=== PATIENT | female | born 1960 | race Caucasian/White ===

== ENCOUNTER 2017-12-08 20:50 | Emergency (ER) | payer OTHER ==
[~2017-12-08] VITALS: Ht 170.2 cm; Wt 109.1 kg
[~2017-12-08 20:50] MED LIST: TYLE325T PO
[2017-12-08 20:52] VITALS: BP 150/75; PULSE 100; RESP 16; TEMP 98.2; O2SAT 99
--- NOTE | 2017-12-08 22:49 | RADRPT ---
EXAM DATE/TIME: 12/08/2017 21:36 [place] COMPARISON: CT ABDOMEN & PELVIS W CONTRAST, December 08, 2017, 17:06. INDICATIONS : Right upper quadrant pain. MEDICAL HISTORY : Hypercholesterolemia. Chronic obstructive pulmonary disease. Gastroesophageal reflux disease. Glasses . Bipolar disorder. Depression. Anxiety. SURGICAL HISTORY : Tubal ligation. Hysterectomy. Right shoulder surgery. ENCOUNTER: Initial ACUITY: 2 days PAIN SCORE: 10/10 LOCATION: Right upper quadrant MEASUREMENTS: LIVER: 16.6 cm length COMMON DUCT: 6 mm RIGHT KIDNEY: 10.6 x 4.8 x 4.8 cm FINDINGS: Visualization was suboptimal secondary to overlying bowel gas securing portions of the midline struct ures. LIVER: The liver is at the upper limits of normal in size with diffuse increased density. There is no focal mass or ductal dilatation. There is normal hepatopedal blood flow in the portal vein. COMMON DUCT: No intraluminal mass or stone visualized. GALLBLADDER: Contains no stones, demonstrates no wall thickening or pericholecystic fluid. PANCREAS: The visualized portions are within normal limits. RIGHT KIDNEY: No evidence of hydronephrosis, stone, or mass. CONCLUSION: 1. Unremarkable gallbladder with no evidence of cholelithiasis. 2. Moderate hepatic steatosis. Abdi Theodore MD on December 08, 2017 at 22:46 Board Certified Radiologist. This report was verified electronically.
--- NOTE | 2017-12-09 | PD ---
HPI Chief Complaint: Abdominal Pain Time Seen by Provider: 23:51 Travel History International Travel<30 days: No Contact w/Intl Traveler<30days: No Traveled to known affect area: No History of Present Illness HPI Patient was seen at the time a ER and initially evaluated with CT scan as well as blood work, however per provider patient needed RUQ ultrasound to ensure there was no evidence of any cholecystitis 57-year-old female presents to the emergency room for evaluation of right upper quadrant abdominal pain that started suddenly at 2:00 this morning. Patient states pain woke her from sleep. Pain is localized right upper quadrant and radiates to her back and shoulder. Worse with certain range of motion. She had associated nausea and fever. Subjective temperature of 102 at home . She took Tylenol which relieved her fever but did not help pain. She has vomited 4 times today and had one episode of diarrhea. There is no blood in vomit or stool. She reports history of hypertension, depression, PTSD, and COPD. Hysterectomy PFSH Past Medical History Bipolar Disorder: Yes Anxiety: Yes Depression: Yes High Cholesterol: Yes COPD: Yes Diminished Hearing: No GERD: Yes Respiratory: Yes (COPD) Migraines: Yes Tubal Ligation: Yes Past Surgical History Hysterectomy: Yes Social History Alcohol Use: No Tobacco Use: Yes Substance Use: No Allergies-Medications (Allergen,Severity, Reaction): Coded Allergies: meloxicam (Verified Allergy, Severe, Nausea/Vomiting, 12/08/17) Reported Meds & Prescriptions Reported Meds & Active Scripts Active No Active Prescriptions or Reported Medications Review of Systems General / Constitutional: No: Fever Eyes: No: Visual changes HENT: No: Headaches Cardiovascular: No: Chest Pain or Discomfort Respiratory: No: Shortness of Breath Gastrointestinal: Positive: Nausea, Vomiting, Diarrhea, Abdominal Pain Genitourinary: No: Dysuria Musculoskeletal: No: Pain Skin: No Rash Neurologic: No: Weakness Psychiatric: No: Depression Endocrine: No: Polydipsia Hematologic/Lymphatic: No: Easy Bruising Physical Exam Narrative GENERAL: SKIN: Warm and dry. HEAD: Atraumatic. Normocephalic. EYES: Pupils equal and round. No scleral icterus. No injection or drainage. ENT: No nasal bleeding or discharge. Mucous membranes pink and moist. NECK: Trachea midline. No JVD. CARDIOVASCULAR: Regular rate and rhythm. RESPIRATORY: No accessory muscle use. Clear to auscultation. Breath sounds equal bilaterally. GASTROINTESTINAL: Abdomen soft, non-tender, nondistended. MUSCULOSKELETAL: Extremities without clubbing, cyanosis, or edema. No obvious deformities. NEUROLOGICAL: Awake and alert. No obvious cranial nerve deficits. Motor grossly within normal limits. Five out of 5 muscle strength in the arms and legs. Normal speech. PSYCHIATRIC: Appropriate mood and affect; insight and judgment normal. Data Data Last Documented VS Vital Signs Date Time Temp Pulse Resp B/P (MAP) Pulse Ox O2 Delivery O2 Flow Rate FiO2 12/09/17 00:02 18 12/08/17 20:52 98.2 100 150/75 (100) 99 Orders Orders Us Abdomen Gallbladder (12/08/17 ) Ondansetron Odt (Zofran Odt) (12/09/17 00:15) Levofloxacin (Levaquin) (12/09/17 00:15) Metronidazole (Flagyl) (12/09/17 00:15) Tramadol (Ultram) (12/09/17 00:15) Dicyclomine Inj (Bentyl Inj) (12/09/17 00:15) [facility] Medical Decision Making Medical Screen Exam Complete: Yes Emergency Medical Condition: Yes Medical Record Reviewed: Yes Differential Diagnosis Biliary colic versus cholecystitis versus cholelithiasis versus bacterial gastroenteritis versus pancreatitis Narrative Course Patient's CBC shows leukocytosis of 15,000 however no major shift was noted, no anemia and normal platelet count. Coagulation profile is within normal limits CMP shows normal electrolytes, normal kidney functions, normal liver functions, normal lipase UA does show evidence of UTI Diagnosis Primary Impression: Urinary tract infection Additional Impression: Acute bacterial gastroenteritis Patient Instructions: Gastroenteritis (ED), General Instructions, Urinary Tract Infection in Women (ED) Scripts Metronidazole (Flagyl) 500 Mg Tab 500 MG PO TID for Infection for 7 Days, #21 TAB 0 Refills Prov: Ankush Gonzalez MD 12/09/17 Levofloxacin (Levaquin) 500 Mg Tablet 500 MG PO DAILY for Infection for 7 Days, #7 TAB 0 Refills Prov: Ankush Gonzalez MD 12/09/17 Ondansetron Odt (Zofran Odt) 4 Mg Tab 4 MG SL Q6HR Y for Nausea/Vomiting, #15 TAB 0 Refills Prov: Ankush Gonzalez MD 12/09/17 Tramadol (Ultram) 50 Mg Tab 50 MG PO Q6H Y for PAIN, #15 TAB 0 Refills Prov: Ankush Gonzalez MD 12/09/17 Disposition: 01 DISCHARGE HOME Condition: Stable Ankush Gonzalez MD Dec 09, 2017 00:00
[2017-12-09] MEDS ORDERED: metroNIDAZOLE 500 MG TAB PO ONE (00:15)
[2017-12-09] MEDS ORDERED: DICYCLOMINE HCL 20 MG/2 ML VIAL IM ONE (00:15)
[2017-12-09] MEDS ORDERED: traMADol HCL 50 MG TAB PO ONE (00:15)
[2017-12-09] MEDS ORDERED: LEVOFLOXACIN 500 MG TAB PO ONE (00:15)
[2017-12-09] MEDS ORDERED: ONDANSETRON ODT 4 MG TAB PO ONE (00:15)
[2017-12-09] MEDS ORDERED: METR-1 PO (00:17)
[2017-12-09] MEDS ORDERED: ZOFR4TAB3 SL (00:17)
[2017-12-09] MEDS ORDERED: LEVA500T33 PO (00:17)
[2017-12-09] MEDS ORDERED: TRAM50 PO (00:17)
== END 2017-12-09 00:40 | disposition home or self-care (01) ==
LOC: NEPD 20:50
DX: N39.0 Urinary tract infection, site not specified (principal); A04.9 Bacterial intestinal infection, unspecified; J44.9 Chronic obstructive pulmonary disease, unspecified; F31.9 Bipolar disorder, unspecified; E78.00 Pure hypercholesterolemia, unspecified; B96.20 Unspecified Escherichia coli [E. coli] as the cause of diseases classified elsewhere; F43.10 Post-traumatic stress disorder, unspecified; Z16.11 Resistance to penicillins; Z72.0 Tobacco use
CPT/HCPCS: 74177; 76705; 80053; 81001; 83690; 85007; 85027; 85610; 85730; 87077; 87086; 87186; 96372; 96374; 96375; 99284; J0500; J1885; J2270; J2405; Q9967

== ENCOUNTER 2018-12-01 12:52 | Inpatient (IN) ==
[2018-12-01] MEDS ORDERED: Sodium Chlor 0.9% Inj 500 ML IV.SIG ONE (13:08)
[2018-12-01] MEDS ORDERED: Morphine Inj 4 MG/ML Vial IV.PUSH ONE ×2 (13:08→16:30)
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
[2018-12-01 15:29] LABS: Baso # (Auto) 0.1 th/mm3 (0.0-0.2); Eos # (Auto) 0.2 th/mm3 (0.0-0.4); Eos % (Auto) 1.5 % (0.0-4.0); Hematocrit 45.2 % (35.0-46.0); Hemoglobin 15.6 gm/dL (11.6-15.3); Lymph # (Auto) 3.8 th/mm3 (1.0-4.8); Lymph % (Auto) 29.4 % (9.0-44.0); Mean Corpuscular HGB Conc 34.4 % (32.0-36.0); Mean Corpuscular Hemoglobin 31.9 pg (27.0-34.0); Mean Corpuscular Volume 92.8 fL (80.0-100.0); Mean Platelet Volume 9.2 fL (7.0-11.0); Mono # (Auto) 0.7 th/mm3 (0.0-0.9); Mono % (Auto) 5.5 % (0.0-8.0); Neut % (Auto) 62.6 % (16.0-70.0); Platelet Count 340 th/mm3 (150-450); Red Blood Count 4.87 mil/mm3 (4.00-5.30); Red Cell Distribution Width 13.7 % (11.6-17.2); White Blood Count 12.8 th/mm3 (4.0-11.0)
[2018-12-01 15:40] LABS: Prothrombin Time 10.1 sec (9.8-11.6)
[2018-12-01] MEDS ORDERED: Morphine Sulfate Inj 2 MG/ML Vial IV.PUSH ONE (15:50)
[2018-12-01 15:52] LABS: Alanine Aminotransferase 27 U/L (10-53); Albumin 4.1 g/dL (3.4-5.0); Anion Gap 8 meq/L (5-15); Aspartate Aminotransferase 23 U/L (15-37); Blood Urea Nitrogen 14 mg/dL (7-18); Calcium 9.1 mg/dL (8.5-10.1); Carbon Dioxide 25.5 meq/L (21.0-32.0); Chloride 104 meq/L (98-107); Glomerular Filtration Rate 81 mL/min (>89); Glucose,Random 85 mg/dL (74-106); Potassium 4.2 meq/L (3.5-5.1); Sodium 137 meq/L (136-145)
[2018-12-01 15:54] LABS: Alkaline Phosphatase 152 U/L (45-117); Total Protein 8.1 g/dL (6.4-8.2)
--- NOTE | 2018-12-01 15:55 | XR ---
EXAM DATE: 12/01/2018 3:48 PM EST AGE/SEX: 58 years / Female INDICATIONS: Evaluate for pneumonia, pneumothorax, or communicable diseases. CLINICAL DATA: This is the patient's initial encounter. Patient reports that signs and symptoms have been present for 1 week and indicates a pain score of 0/10. MEDICAL/SURGICAL HISTORY: Chronic obstructive pulmonary disease. None. COMPARISON: [facility], CHEST 1V SINGLE AP, 10/13/2018. . FINDINGS: A single AP view of the chest demonstrates the lungs to be symmetrically aerated without evidence of mass, infiltrate or effusion. The cardiomediastinal contours are unremarkable. Osseous structures a re intact. CONCLUSION: No acute cardiopulmonary findings. Stable compared to previous dated 10/13/2018. Electronically signed by: Henri Mathew MD Board Certified Radiologist 12/01/2018 3:53 PM EST
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
[2018-12-01] MEDS ORDERED: Acetaminophen 325 MG Tablet PO PRN (16:11)
[2018-12-01] MEDS ORDERED: Naloxone Inj 0.4 MG/ML Vial IV.PUSH PRN (16:11)
[2018-12-01] MEDS: Morphine Inj 4 MG/ML Vial IV.PUSH PRN ×2 (19:18→21:08)
[2018-12-01] MEDS: Zolpidem Tartrate 5 MG Tablet PO PRN (21:09)
[2018-12-01] MEDS: Morphine Sulfate Inj 2 MG/ML Vial IV.PUSH PRN (22:49)
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
[2018-12-02] MEDS: Morphine Inj 4 MG/ML Vial IV.PUSH PRN ×2 (01:11→07:33)
[2018-12-02] MEDS ORDERED: Chlorhexidine Gluconate 2% 1 Pack (2 Cloths) TOPICAL ONE (03:44)
[2018-12-02] MEDS: Morphine Sulfate Inj 2 MG/ML Vial IV.PUSH PRN (03:56)
[2018-12-02] MEDS ORDERED: Sodium Chlor 0.9% Inj 500 ML IV.SIG SCH (04:00)
[2018-12-02 04:57] LABS: Baso # (Auto) 0.1 th/mm3 (0.0-0.2); Baso % (Auto) 1.1 % (0.0-2.0); Eos # (Auto) 0.3 th/mm3 (0.0-0.4); Eos % (Auto) 2.4 % (0.0-4.0); Hematocrit 40.1 % (35.0-46.0); Hemoglobin 13.6 gm/dL (11.6-15.3); Lymph # (Auto) 3.8 th/mm3 (1.0-4.8); Lymph % (Auto) 33.7 % (9.0-44.0); Mean Corpuscular Hemoglobin 31.9 pg (27.0-34.0); Mean Corpuscular Volume 93.8 fL (80.0-100.0); Mean Platelet Volume 8.5 fL (7.0-11.0); Mono # (Auto) 0.8 th/mm3 (0.0-0.9); Mono % (Auto) 7.2 % (0.0-8.0); Neut # (Auto) 6.3 th/mm3 (1.8-7.7); Neut % (Auto) 55.6 % (16.0-70.0); Platelet Count 281 th/mm3 (150-450); Red Blood Count 4.28 mil/mm3 (4.00-5.30); Red Cell Distribution Width 13.8 % (11.6-17.2); White Blood Count 11.3 th/mm3 (4.0-11.0)
[2018-12-02 05:20] LABS: Calcium 8.4 mg/dL (8.5-10.1); Carbon Dioxide 28.6 meq/L (21.0-32.0); Potassium 4.5 meq/L (3.5-5.1)
[2018-12-02 07:41] LABS: Calcium 8.4 mg/dL (8.5-10.1)
[2018-12-02 07:57] LABS: Albumin 3.3 g/dL (3.4-5.0)
[2018-12-02] MEDS ORDERED: amLODIPine 5 MG Tablet PO SCH (09:00)
[2018-12-02] MEDS ORDERED: HYDROmorphone PF Inj 1 MG/ML Ampul IV.PUSH PRN (10:00)
[2018-12-02] MEDS ORDERED: Morphine Inj 4 MG/ML Vial IV.PUSH PRN (10:00)
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
[2018-12-02] MEDS: HYDROmorphone PF Inj 1 MG/ML Ampul IV.PUSH PRN ×5 (10:57→23:38)
--- NOTE | 2018-12-02 11:35 | ECG ---
Date Performed: 12/01/2018 Time Performed: 17:18:48 PTAGE: 58 years EKG: Sinus rhythm NORMAL ECG Since the PREVIOUS TRACING , no significant change noted PREVIOUS TRACIN12/29/2000 10.49 DOCTOR: Keven Blair Interpretating Date/Time 12/02/2018 11:33:29
--- NOTE | 2018-12-02 11:46 | P.PNFP ---
Subjective Interval history: Patient was seen and evaluated this morning. Patient was on stretcher, on her way to MRI. She reports significant pain, not controlled with pain medication regimen. She denies chest pain, shortness of breath, nausea, vomiting, diarrhea and constipation. Patient was told that operation would be at 3 p.m. today. All questions were answered. <Anita MarinCoryRachelle - 12/02/18 15:40> Results - Labs Result diagrams: 12/03/18 07:22 12/03/18 07:22 <Glenn Villanueva - 12/03/18 13:34> Abnormal lab results 12/03/18 12/03/18 Range/Units 07:22 07:22 WBC 13.3 H (4.0-11.0) th/mm3 Estimated GFR 75 L (>89) mL/min Calcium 8.4 L (8.5-10.1) mg/dL Short CBC 12/03/18 Range/Units 07:22 WBC 13.3 H (4.0-11.0) th/mm3 Hgb 13.5 (11.6-15.3) gm/dL Hct 40.2 (35.0-46.0) % Plt Count 266 (150-450) th/mm3 BMP 12/03/18 07:22 Sodium 136 Potassium 4.1 Chloride 102 Carbon Dioxide 25.9 BUN 14 Creatinine 0.79 Calcium 8.4 L <Glenn Villanueva R - 12/03/18 13:34> Abnormal lab results 12/01/18 12/01/18 12/02/18 Range/Units 15:13 15:13 03:52 WBC 12.8 H 11.3 H (4.0-11.0) th/mm3 Hgb 15.6 H (11.6-15.3) gm/dL Neut # (Auto) 8.0 H (1.8-7.7) th/mm3 Estimated GFR 81 L (>89) mL/min Calcium (8.5-10.1) mg/dL Alkaline Phosphatase 152 H (45-117) U/L Albumin (3.4-5.0) g/dL 12/02/18 12/02/18 Range/Units 03:52 03:52 WBC (4.0-11.0) th/mm3 Hgb (11.6-15.3) gm/dL Neut # (Auto) (1.8-7.7) th/mm3 Estimated GFR 66 L (>89) mL/min Calcium 8.4 L 8.4 L (8.5-10.1) mg/dL Alkaline Phosphatase (45-117) U/L Albumin 3.3 L D (3.4-5.0) g/dL Short CBC 12/01/18 12/02/18 Range/Units 15:13 03:52 WBC 12.8 H 11.3 H (4.0-11.0) th/mm3 Hgb 15.6 H 13.6 D (11.6-15.3) gm/dL Hct 45.2 40.1 (35.0-46.0) % Plt Count 340 281 (150-450) th/mm3 BMP 12/01/18 12/02/18 12/02/18 15:13 03:52 03:52 Sodium 137 138 Potassium 4.2 4.5 Chloride 104 103 Carbon Dioxide 25.5 28.6 BUN 14 15 Creatinine 0.74 0.88 Calcium 9.1 8.4 L 8.4 L Liver Function 12/01/18 12/02/18 Range/Units 15:13 03:52 Total Bilirubin 0.3 (0.2-1.0) mg/dL AST 23 (15-37) U/L ALT 27 (10-53) U/L Alkaline Phosphatase 152 H (45-117) U/L Albumin 4.1 3.3 L D (3.4-5.0) g/dL <Labell Rachelle Marin - 12/02/18 11:45> - Imaging Impressions Foot X-Ray 12/02/18 00:00 CONCLUSION: External fixation pin in fifth digit. Foot X-Ray 12/02/18 00:00 CONCLUSION: Intraoperative images. <Glenn Villanueva R - 12/03/18 13:34> Impressions Ankle X-Ray 12/01/18 00:00 CONCLUSION: No acute bony injury Cervical Spine CT 12/01/18 13:08 CONCLUSION: 1. Negative trauma study. Clavicle X-Ray 12/01/18 13:08 CONCLUSION: The clavicle is intact. Foot X-Ray 12/01/18 13:08 CONCLUSION: Amended fracture deformity of the fifth metatarsal. Head CT 12/01/18 13:08 CONCLUSION: 1. Negative trauma CT . Lumbar Spine CT 12/01/18 13:08 CONCLUSION: 1. No acute fracture or malalignment. 2. Moderate degenerative disc change at L5-S1 with disc osteophyte complex. 3. Narrowing of the neural foramina at the L5-S1 level left greater than right. Shoulder X-Ray 12/01/18 13:08 CONCLUSION: Negative trauma study. Thoracic Spine CT 12/01/18 13:08 CONCLUSION: 1. No acute fracture or subluxation. Chest X-Ray 12/01/18 15:06 CONCLUSION: No acute cardiopulmonary findings. Stable compared to previous dated 10/13/2018. Ankle MRI 12/02/18 00:00 CONCLUSION: 1. No evidence of fracture or dislocation. 2. 7 mm subcortical cyst in the posterior lateral tibial plateau. 3. Mild amount of fluid in the anterior talocalcaneal region without evidence of fracture. Foot MRI 12/02/18 00:00 CONCLUSION: 1. Expected signal changes related to comminuted mildly displaced fracture of the distal shaft of the fifth metatarsus and diffuse soft tissue swelling about the dorsal and lateral aspect of the forefoot. <Labell R2Rachelle - 12/02/18 11:45> Physical Exam Vital signs: Vital Signs 12/02/18 14:48 12/02/18 16:34 12/02/18 17:30 Temperature 97.5 F L 98.0 F Pulse Rate 87 83 Respiratory Rate 16 15 Blood Pressure 129/69 145/67 H Pulse Oximetry 95 94 L 95 12/02/18 19:59 12/03/18 00:00 12/03/18 04:00 Temperature 98.2 F 98.6 F 99.4 F Pulse Rate 84 95 H 80 Respiratory Rate 16 18 18 Blood Pressure 135/85 123/63 140/67 Pulse Oximetry 95 97 96 12/03/18 08:00 12/03/18 12:00 Temperature 98.3 F 98.2 F Pulse Rate 107 H 108 H Respiratory Rate 22 20 Blood Pressure 133/52 L 136/63 Pulse Oximetry 91 L 93 L Intake & Output 12/02/18 12/03/18 12/03/18 18:59 06:59 18:59 Intake Total 240 / 240 720 / 720 Balance 240 / 240 720 / 720 Weight 114.4 kg Intake: Oral 240 / 240 720 / 720 Other: # Voids 1 4 Date of Last Bowel Movement 12/01/18 12/01/18 12/01/18 # Bowel Movements 0 # Emeses 1 <Glenn Villanueva - 12/03/18 13:34> Vital Signs 12/01/18 13:15 12/01/18 13:20 12/01/18 13:54 Temperature 98.1 F Pulse Rate 98 H 91 H Respiratory Rate 20 20 18 Blood Pressure 207/110 H 134/70 Pulse Oximetry 99 12/01/18 16:19 12/01/18 16:40 12/01/18 17:45 Temperature Pulse Rate 81 85 Respiratory Rate 18 18 Blood Pressure 150/66 H Pulse Oximetry 100 99 12/01/18 18:00 12/01/18 19:19 12/01/18 23:33 Temperature 97.7 F 97.8 F Pulse Rate 89 92 H 91 H Respiratory Rate 16 18 18 Blood Pressure 131/67 141/68 H 132/72 Pulse Oximetry 97 96 12/02/18 04:28 12/02/18 08:00 Temperature 97.9 F 97.2 F L Pulse Rate 89 97 H Respiratory Rate 18 22 Blood Pressure 137/63 143/69 H Pulse Oximetry 97 92 L Intake & Output 12/01/18 12/02/18 12/02/18 18:59 06:59 18:59 Intake Total 980 / 980 360 / 360 Balance 980 / 980 360 / 360 Weight 106.594 kg 111.1 kg Intake: IV 500 / 500 NS Inj 500 ML @ Wide Open IV. 500 / 500 SIG BOLUS ONE Rx#:[id number] Oral 480 / 480 360 / 360 Other: # Voids 2 Date of Last Bowel Movement 12/01/18 # Bowel Movements 0 Weight On Admission 111.2 kg <Rachelle Sandoval - 12/02/18 11:45> Narrative: GENERAL: Obese female on stretcher in obvious distress. SKIN: Warm and dry. HEAD: Atraumatic. Normocephalic. EYES: Pupils equal and round. No scleral icterus. No injection or drainage. ENT: No nasal bleeding or discharge. Mucous membranes pink and moist. CARDIOVASCULAR: Regular rate and rhythm. RESPIRATORY: No accessory muscle use. Clear to auscultation over anterior lung moody. Breath sounds equal bilaterally. GASTROINTESTINAL: Abdomen soft, non-tender, nondistended. MUSCULOSKELETAL: Left foot in soft cast. Extremities without clubbing, cyanosis , or edema. Sensation intact. NEUROLOGICAL: Awake and alert. No obvious cranial nerve deficits. Motor grossly within normal limits. Normal speech. PSYCHIATRIC: Appropriate mood and affect; insight and judgment normal. <Susidakotah Rachelle Marin - 12/02/18 15:40> Assessment and Plan - Assessment (1) Metatarsal bone fracture Code(s): S92.309A - Fracture of unspecified metatarsal bone(s), unspecified foot , initial encounter for closed fracture Status: Acute (2) Chronic pain Code(s): G89.29 - Other chronic pain Status: Chronic (3) Depression Code(s): F32.9 - Major depressive disorder, single episode, unspecified Status : Acute (4) Hypertension Code(s): I10 - Essential (primary) hypertension Status: Acute (5) Nutrition, metabolism, and development symptoms Code(s): R63.8 - Other symptoms and signs concerning food and fluid intake Status: Acute <Glenn Villanueva - 12/03/18 13:34> (1) Metatarsal bone fracture Code(s): S92.309A - Fracture of unspecified metatarsal bone(s), unspecified foot , initial encounter for closed fracture Status: Acute Plan: Patient has fifth metatarsal fracture. Podiatry plans for ORIF today. Podiatry following; appreciate recommendation. PT consulted; recommend home with home health PT and wheeled walker. Pain management with Dilaudid while NPO. To start chronic pain medication (oxycodone 10mg PO TID) plus acute pain medication (morphine) following surgery. (2) Chronic pain Code(s): G89.29 - Other chronic pain Status: Chronic Plan: Patient with chronic back pain. Controlled on oxycodone-acetaminophen 10-325mg PO TID. Patient seen by pain management, Dr. Harrell. Confirmed via [facility]. Will restart home regimen following surgery. (3) Depression Code(s): F32.9 - Major depressive disorder, single episode, unspecified Status : Acute Plan: Patient with history of depression. Previously on Cymbalta 60 mg. She was not able to refill these prescriptions as she lost her insurance 2 months ago. May consider restarting this medication at 40mg PO daily in one dose or divided BID following surgery. Case management consulted to provide the patient with [facility] information. (4) Hypertension Code(s): I10 - Essential (primary) hypertension Status: Acute Plan: Patient with history of hypertension. Patient's blood pressure upon admission was 207/110. With adequate pain control the blood pressures decreased to 150/86. Restart home amlodipine 5 mg PO daily. (5) Nutrition, metabolism, and development symptoms Code(s): R63.8 - Other symptoms and signs concerning food and fluid intake Status: Acute Plan: Fluids: LR at 30ml/hr. Nutrition: NPO after midnight. Electrolytes: Monitor and replete as necessary. <Rachelle Sandoval - 12/02/18 15:21> - Assessment and Plan Discharge Planning: Pending podiatry clearance. <Rachelle Sandoval - 12/02/18 15:40> - Attending Attestation This patient was seen and evaluated with the resident physician. I agree with the plan of care as discussed with me and documented in the resident note. Glenn Villanueva MD <Glenn Villanueva - 12/03/18 13:34>
[2018-12-02] MEDS ORDERED: Bupivacaine 0.5% Inj 50 ML MDV Vial ONE (14:24)
[2018-12-02] MEDS ORDERED: ceFAZolin 2 GM Premix Inj 2 GM/50 ML PIGGYBACK IV.SIG ONE (15:34)
[2018-12-02] MEDS ORDERED: Misc Info for Pharmacy OTHER STA (16:34)
[2018-12-02] MEDS ORDERED: Promethazine 25 MG Supp RECTAL PRN (16:34)
[2018-12-02] MEDS ORDERED: Bisacodyl 10 MG Supp RECTAL PRN (16:34)
[2018-12-02] MEDS ORDERED: Naloxone Inj 0.4 MG/ML Vial IV.PUSH PRN (16:34)
[2018-12-02] MEDS ORDERED: fentaNYL Citrate Inj 100 MCG/2 ML Ampul ONE (16:39)
--- NOTE | 2018-12-02 16:39 | P.BOP ---
- Preoperative Diagnosis (1) Metatarsal bone fracture - Postoperative Diagnosis (1) Metatarsal bone fracture Date of procedure: 12/02/18 Procedure: 1) Left 5th metatarsal open reduction and internal fixation. Anesthesia: MAC Surgeon: Donna Brooks DPM Estimated blood loss (mL): 5 Tourniquet time (min): 23 (Left ankle) Pathology: none sent Condition: stable Disposition: same day
--- NOTE | 2018-12-02 17:11 | XR ---
EXAM DATE: 12/02/2018 5:07 PM EST AGE/SEX: 58 years / Female INDICATIONS: ORIF of the 5th metatarsal done in the operating room. CLINICAL DATA: This is the patient's initial encounter. Patient reports that signs and symptoms have been present for 1 day and indicates a pain score of Nonresponsive. MEDICAL/SURGICAL HISTORY: . Hypertension. . Hysterectomy. Tubal ligation. rotator cuff surgery COMPARISON: No prior exams available for comparison. FINDINGS: 2 images are recorded digitally in the operating room using C-arm during placement of external pin th rough the fifth digit. CONCLUSION: Intraoperative images. Electronically signed by: Tuan Hernandez MD Board Certified Radiologist 12/02/2018 5:09 PM EST
--- NOTE | 2018-12-02 17:48 | XR ---
EXAM DATE: 12/02/2018 5:43 PM EST AGE/SEX: 58 years / Female INDICATIONS: Post op. CLINICAL DATA: This is the patient's initial encounter. Patient reports that signs and symptoms have been present for 1 day and indicates a pain score of 0/10. MEDICAL/SURGICAL HISTORY: Hypertension. . Hysterectomy. Tubal ligation. rotator cuff surgery COMPARISON: No prior exams available for comparison. FINDINGS: External fixation pin courses across the fracture of the distal shaft of the fifth metatarsal. There is near-anatomic alignment across the fracture line in frontal view and mild dorsal angulation in lat eral view. Remainder of the osseous structures are intact. Fiberglas splint in place. CONCLUSION: External fixation pin in fifth digit. Electronically signed by: Tuan Hernandez MD Board Certified Radiologist 12/02/2018 5:46 PM EST
[2018-12-02] MEDS: Senna/Docusate Sodium 8.6/50 MG Tablet PO SCH (20:04)
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
[2018-12-03] MEDS: HYDROmorphone PF Inj 1 MG/ML Ampul IV.PUSH PRN ×5 (01:21→08:08)
[2018-12-03] MEDS: Senna/Docusate Sodium 8.6/50 MG Tablet PO SCH ×2 (08:09→20:00)
[2018-12-03 08:11] LABS: Hematocrit 40.2 % (35.0-46.0); Hemoglobin 13.5 gm/dL (11.6-15.3); Mean Corpuscular HGB Conc 33.6 % (32.0-36.0); Mean Corpuscular Hemoglobin 31.4 pg (27.0-34.0); Mean Corpuscular Volume 93.5 fL (80.0-100.0); Mean Platelet Volume 8.5 fL (7.0-11.0); Platelet Count 266 th/mm3 (150-450); Red Cell Distribution Width 13.9 % (11.6-17.2); White Blood Count 13.3 th/mm3 (4.0-11.0)
[2018-12-03 08:24] LABS: Calcium 8.4 mg/dL (8.5-10.1); Carbon Dioxide 25.9 meq/L (21.0-32.0); Potassium 4.1 meq/L (3.5-5.1)
--- NOTE | 2018-12-03 08:59 | P.DCO ---
- Physical Therapy Order: Evaluate and treat - Home Health Nursing Order: Medical education, Wound care and dressing changes - Case Management Consult Case Management Consult-Home Health: Yes - Certification I have seen patient Sindhu Velázquez on 12/03/18. My clinical findings support the need for the requested home health care services because: Limited mobility due to disease progression, High risk of falls I certify that my clinical findings support that this patient is homebound because: Post-op weakness, Unsteady gait/balance
--- NOTE | 2018-12-03 09:17 | P.PNFP ---
Subjective Interval history: Patient seen and evaluated at bedside today. She reports that she is in excruciating pain. I discussed with her that because she is on a home chronic pain management opiate regimen, she does require more pain medication than the average person. I also explained to her that with her surgery, it is unrealistic that she will be pain-free during the healing stages. I also discussed with her that she will be sent home with home health care physical therapy. She voiced understanding but is concerned that there will be enough room for physical therapy in her home. Patient denied any chest pain, abdominal pain, nausea, vomiting, constipation. <Liliana De Santiago - 12/03/18 11:00> Results - Labs Result diagrams: 12/03/18 07:22 12/03/18 07:22 <Glenn Villanueva - 12/03/18 13:41> Abnormal lab results 12/03/18 12/03/18 Range/Units 07:22 07:22 WBC 13.3 H (4.0-11.0) th/mm3 Estimated GFR 75 L (>89) mL/min Calcium 8.4 L (8.5-10.1) mg/dL Short CBC 12/03/18 Range/Units 07:22 WBC 13.3 H (4.0-11.0) th/mm3 Hgb 13.5 (11.6-15.3) gm/dL Hct 40.2 (35.0-46.0) % Plt Count 266 (150-450) th/mm3 BMP 12/03/18 07:22 Sodium 136 Potassium 4.1 Chloride 102 Carbon Dioxide 25.9 BUN 14 Creatinine 0.79 Calcium 8.4 L <Glenn Villanueva R - 12/03/18 13:41> Abnormal lab results 12/03/18 12/03/18 Range/Units 07:22 07:22 WBC 13.3 H (4.0-11.0) th/mm3 Estimated GFR 75 L (>89) mL/min Calcium 8.4 L (8.5-10.1) mg/dL Short CBC 12/03/18 Range/Units 07:22 WBC 13.3 H (4.0-11.0) th/mm3 Hgb 13.5 (11.6-15.3) gm/dL Hct 40.2 (35.0-46.0) % Plt Count 266 (150-450) th/mm3 BMP 12/03/18 07:22 Sodium 136 Potassium 4.1 Chloride 102 Carbon Dioxide 25.9 BUN 14 Creatinine 0.79 Calcium 8.4 L <Liliana De Santiago - 12/03/18 09:17> - Imaging Impressions Foot X-Ray 12/02/18 00:00 CONCLUSION: External fixation pin in fifth digit. Foot X-Ray 12/02/18 00:00 CONCLUSION: Intraoperative images. <Glenn Villanueva R - 12/03/18 13:41> Impressions Ankle MRI 12/02/18 00:00 CONCLUSION: 1. No evidence of fracture or dislocation. 2. 7 mm subcortical cyst in the posterior lateral tibial plateau. 3. Mild amount of fluid in the anterior talocalcaneal region without evidence of fracture. Foot MRI 12/02/18 00:00 CONCLUSION: 1. Expected signal changes related to comminuted mildly displaced fracture of the distal shaft of the fifth metatarsus and diffuse soft tissue swelling about the dorsal and lateral aspect of the forefoot. Foot X-Ray 12/02/18 00:00 CONCLUSION: External fixation pin in fifth digit. Foot X-Ray 12/02/18 00:00 CONCLUSION: Intraoperative images. <RichLiliana Lopez - 12/03/18 09:17> Physical Exam Vital signs: Vital Signs 12/02/18 14:48 12/02/18 16:34 12/02/18 17:30 Temperature 97.5 F L 98.0 F Pulse Rate 87 83 Respiratory Rate 16 15 Blood Pressure 129/69 145/67 H Pulse Oximetry 95 94 L 95 12/02/18 19:59 12/03/18 00:00 12/03/18 04:00 Temperature 98.2 F 98.6 F 99.4 F Pulse Rate 84 95 H 80 Respiratory Rate 16 18 18 Blood Pressure 135/85 123/63 140/67 Pulse Oximetry 95 97 96 12/03/18 08:00 12/03/18 12:00 Temperature 98.3 F 98.2 F Pulse Rate 107 H 108 H Respiratory Rate 22 20 Blood Pressure 133/52 L 136/63 Pulse Oximetry 91 L 93 L Intake & Output 12/02/18 12/03/18 12/03/18 18:59 06:59 18:59 Intake Total 240 / 240 720 / 720 Balance 240 / 240 720 / 720 Weight 114.4 kg Intake: Oral 240 / 240 720 / 720 Other: # Voids 1 4 Date of Last Bowel Movement 12/01/18 12/01/18 12/01/18 # Bowel Movements 0 # Emeses 1 <Glenn Villanueva - 12/03/18 13:41> Vital Signs 12/02/18 12:00 12/02/18 14:48 12/02/18 16:34 Temperature 97.9 F 97.5 F L Pulse Rate 89 87 Respiratory Rate 20 16 Blood Pressure 149/67 H 129/69 Pulse Oximetry 93 L 95 94 L 12/02/18 17:30 12/02/18 19:59 12/03/18 00:00 Temperature 98.0 F 98.2 F 98.6 F Pulse Rate 83 84 95 H Respiratory Rate 15 16 18 Blood Pressure 145/67 H 135/85 123/63 Pulse Oximetry 95 95 97 12/03/18 04:00 12/03/18 08:00 Temperature 99.4 F 98.3 F Pulse Rate 80 107 H Respiratory Rate 18 22 Blood Pressure 140/67 133/52 L Pulse Oximetry 96 91 L Intake & Output 12/02/18 12/03/18 12/03/18 18:59 06:59 18:59 Intake Total 240 / 240 720 / 720 Balance 240 / 240 720 / 720 Weight 114.4 kg Intake: Oral 240 / 240 720 / 720 Other: # Voids 1 4 Date of Last Bowel Movement 12/01/18 12/01/18 # Bowel Movements 0 # Emeses 1 <Liliana De Santiago - 12/03/18 09:17> Narrative: GENERAL: Obese female lying in hospital bed comfortably although she is complaining of excruciating pain. SKIN: Warm and dry. HEAD: Atraumatic. Normocephalic. EYES: Pupils equal and round. No scleral icterus. No injection or drainage. ENT: No nasal bleeding or discharge. Mucous membranes pink and moist. CARDIOVASCULAR: Regular rate and rhythm. RESPIRATORY: No accessory muscle use. Clear to auscultation bilaterally. GASTROINTESTINAL: Abdomen soft, non-tender, nondistended. MUSCULOSKELETAL: Left foot in splinted cast. Extremities without clubbing, cyanosis, or edema. Sensation intact. NEUROLOGICAL: Awake and alert. No obvious cranial nerve deficits. Motor grossly within normal limits. Normal speech. PSYCHIATRIC: Appropriate mood and affect; insight and judgment normal. <Liliana De Santiago A - 12/03/18 11:00> Assessment and Plan - Assessment (1) Metatarsal bone fracture Code(s): S92.309A - Fracture of unspecified metatarsal bone(s), unspecified foot , initial encounter for closed fracture Status: Acute (2) Chronic pain Code(s): G89.29 - Other chronic pain Status: Chronic (3) Depression Code(s): F32.9 - Major depressive disorder, single episode, unspecified Status : Acute (4) Hypertension Code(s): I10 - Essential (primary) hypertension Status: Acute (5) Nutrition, metabolism, and development symptoms Code(s): R63.8 - Other symptoms and signs concerning food and fluid intake Status: Acute <Glenn Villanueva - 12/03/18 13:41> (1) Metatarsal bone fracture Code(s): S92.309A - Fracture of unspecified metatarsal bone(s), unspecified foot , initial encounter for closed fracture Status: Acute Plan: Patient has fifth metatarsal fracture. ORIF 12/02/18 Podiatry following; appreciate recommendation. PT consulted; recommend home with home health PT and wheeled walker. Start chronic pain medication (percocet 10mg PO TID) plus acute pain medication (oxycodone). (2) Chronic pain Code(s): G89.29 - Other chronic pain Status: Chronic Plan: Patient with chronic back pain. Controlled on oxycodone-acetaminophen 10-325mg PO TID. Patient seen by pain management, Dr. Harrell. Confirmed via [facility]. (3) Depression Code(s): F32.9 - Major depressive disorder, single episode, unspecified Status : Acute Plan: Patient with history of depression. Previously on Cymbalta 60 mg. She was not able to refill these prescriptions as she lost her insurance 2 months ago. May consider restarting this medication at 40mg PO daily. Case management consulted to provide the patient with [facility] information. (4) Hypertension Code(s): I10 - Essential (primary) hypertension Status: Acute Plan: Patient with history of hypertension. Patient's blood pressure has been well controlled during this admission 120s-140s/60s-80s. Hold home amlodipine 5 mg PO daily. Patient to follow-up with [facility]. (5) Nutrition, metabolism, and development symptoms Code(s): R63.8 - Other symptoms and signs concerning food and fluid intake Status: Acute Plan: Fluids: Tolerating p.o. intake Nutrition: Regular diet Electrolytes: Monitor and replete as necessary. <Liliana De Santiago 12/03/18 10:46> - Assessment and Plan Discharge Planning: Patient will likely be discharged today pending improved management of her pain and case management obtaining a wheeled walker and scheduling home health care PT. <Liliana De Santiago 12/03/18 11:00> - Attending Attestation This patient was seen and evaluated with the resident physician. I agree with the plan of care as discussed with me and documented in the resident note. Glenn Villanueva MD <Glenn Villanueva - 12/03/18 13:41>
[2018-12-03] MEDS ORDERED: Naloxone Inj 0.4 MG/ML Vial IV.PUSH PRN (09:29)
[2018-12-03] MEDS: oxyCODONE/Acetaminophen 10/325 Tablet PO SCH ×2 (12:03→19:49)
--- NOTE | 2018-12-03 17:36 | P.PNPOD ---
Subjective Interval history: s/p left 5th ORIF DOS 12/02/18 Dr Brooks No v/d/f/c/n No calf pain. Physical Exam Vital signs: Vital Signs 12/02/18 19:59 12/03/18 00:00 12/03/18 04:00 Temperature 98.2 F 98.6 F 99.4 F Pulse Rate 84 95 H 80 Respiratory Rate 16 18 18 Blood Pressure 135/85 123/63 140/67 Pulse Oximetry 95 97 96 12/03/18 08:00 12/03/18 12:00 Temperature 98.3 F 98.2 F Pulse Rate 107 H 108 H Respiratory Rate 22 20 Blood Pressure 133/52 L 136/63 Pulse Oximetry 91 L 93 L Intake & Output 12/02/18 12/03/18 12/03/18 18:59 06:59 18:59 Intake Total 240 / 240 720 / 720 Balance 240 / 240 720 / 720 Weight 114.4 kg Intake: Oral 240 / 240 720 / 720 Other: # Voids 1 4 Date of Last Bowel Movement 12/01/18 12/01/18 12/01/18 # Bowel Movements 0 # Emeses 1 Narrative: LLE Intact K wire and perfused digit 1-5 on the left sensate Medications and Allergies Active Medications: Active Medications Acetaminophen (Tylenol) 650 mg PO Q6HR PRN PRN Reason: PAIN SCALE 1 TO 2 Al Hydroxide/Mg Hydroxide (Milk Of Magnesia Liq) 30 ml PO Q12H PRN PRN Reason: Mild Constipation Last Admin: 12/03/18 15:21 Dose: 30 ml Albuterol (Duoneb Neb (Prn)) 1 ampul NEB Q4HR NEB PRN PRN Reason: WHEEZING Amlodipine Besylate (Norvasc) 5 mg PO DAILY [facility] Last Admin: 12/02/18 09:00 Dose: 5 mg Bisacodyl (Dulcolax Supp) 10 mg RECTAL DAILY PRN PRN Reason: SEVERE CONSITIPATION Duloxetine HCl (Cymbalta) 40 mg PO DAILY [facility] Last Admin: 12/03/18 13:05 Dose: 40 mg Sodium Chloride (Ns Inj) 500 mls @ 30 mls/hr IV.SIG .Q10H [facility] Lactulose (Lactulose Liq) 30 ml PO DAILY PRN PRN Reason: SEVERE CONSITIPATION Last Admin: 12/03/18 15:21 Dose: 30 ml Morphine Sulfate (Morphine Inj) 4 mg IV.PUSH Q3H PRN PRN Reason: PAIN 6-10;IF UNABLE TO TAKE PO Last Admin: 12/02/18 07:33 Dose: 4 mg Morphine Sulfate (Morphine Inj) 4 mg IV.PUSH Q3H PRN PRN Reason: BREAKTHROUGH PAIN Last Admin: 12/02/18 01:11 Dose: 4 mg Morphine Sulfate (Morphine Inj) 2 mg IV.PUSH Q3H PRN PRN Reason: PAIN 3-5; IF UABLE TO TAKE PO Last Admin: 12/02/18 03:56 Dose: 2 mg Naloxone HCl (Narcan Inj) 0.4 mg IV.PUSH UNSCH PRN PRN Reason: SEE LABEL COMMENTS Naloxone HCl (Narcan Inj) 0.4 mg IV.PUSH UNSCH PRN PRN Reason: SEE LABEL COMMENTS Ondansetron HCl (Zofran Odt) 4 mg PO Q6H PRN PRN Reason: NAUSEA OR VOMITING Ondansetron HCl (Zofran Inj) 4 mg IV.PUSH Q6H PRN PRN Reason: NAUSEA OR VOMITING Last Admin: 12/02/18 18:45 Dose: 4 mg Oxycodone HCl (Roxicodone) 5 mg PO Q6H PRN PRN Reason: Pain Scale 3 To 6 Oxycodone HCl (Roxicodone) 10 mg PO Q6H PRN PRN Reason: PAIN SCALE 7 TO 10 SEVERE Last Admin: 12/03/18 11:32 Dose: 10 mg Oxycodone/Acetaminophen (Percocet 10/325 Mg) 1 tab PO Q8H [facility] Last Admin: 12/03/18 12:03 Dose: 1 tab Promethazine HCl (Phenergan Supp) 25 mg RECTAL Q6H PRN PRN Reason: NAUSEA OR VOMITING Promethazine HCl (Phenergan) 25 mg PO Q6H PRN PRN Reason: NAUSEA OR VOMITING Senna/Docusate Sodium (Kelly-Colace) 1 tab PO BID [facility] Last Admin: 12/03/18 08:09 Dose: 1 tab Sennosides (Senokot) 17.2 mg PO Q12H PRN PRN Reason: Moderate Constipation Sodium Chloride (Ns Flush) 2 ml IV.FLUSH BID [facility] Last Admin: 12/03/18 08:09 Dose: 2 ml Sodium Chloride (Ns Flush) 2 ml IV.FLUSH PRN PRN PRN Reason: FLUSH AFTER USING IV ACCESS Zolpidem Tartrate (Ambien) 5 mg PO HS PRN PRN Reason: INSOMNIA Last Admin: 12/01/18 21:09 Dose: 5 mg Allergies Allergy/AdvReac Type Severity Reaction Status Date / Time meloxicam Allergy Severe Nausea/Vomi Verified 10/13/18 17:30 ting Home Medications Medication Instructions Recorded Confirmed Type oxycodone 10 mg PO TID 08/09/18 12/01/18 History Results - Labs CBC & Chem 7: 12/03/18 07:22 12/03/18 07:22 Laboratory Results - last 24 hr 12/03/18 12/03/18 07:22 07:22 WBC 13.3 H RBC 4.30 Hgb 13.5 Hct 40.2 MCV 93.5 MCH 31.4 MCHC 33.6 RDW 13.9 Plt Count 266 MPV 8.5 Sodium 136 Potassium 4.1 Chloride 102 Carbon Dioxide 25.9 Anion Gap 8 BUN 14 Creatinine 0.79 Estimated GFR 75 L Random Glucose 88 Calcium 8.4 L - Imaging Impressions Foot X-Ray 12/02/18 00:00 CONCLUSION: External fixation pin in fifth digit. Assessment and Plan - Assessment (1) Metatarsal bone fracture Code(s): S92.309A - Fracture of unspecified metatarsal bone(s), unspecified foot , initial encounter for closed fracture Status: Acute - Plan OK to d/c per Podiatry with pain control NWB left 6 week f/u with in 1 week of dc Keep dressing clean dry and intact. Continue to ice q 4 hrs behind the left knee during waking hours.
[2018-12-03] MEDS: Zolpidem Tartrate 5 MG Tablet PO PRN (20:00)
[2018-12-04] MEDS: oxyCODONE/Acetaminophen 10/325 Tablet PO SCH ×2 (03:55→12:13)
[2018-12-04 08:36] VITALS: RESP 18
[2018-12-04] MEDS: Senna/Docusate Sodium 8.6/50 MG Tablet PO SCH (09:05)
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
[2018-12-04 13:08] VITALS: BP 136/65; PULSE 94; TEMP 99.9; O2SAT 93
== END 2018-12-04 13:29 | disposition home health service (06) | DRG 505 ==
LOC: NEPE 12:52 → OBSVTOIN 15:24 → INTOOBSV 15:24 → NEDA 15:24 → N06 18:13
PROVIDERS: ADMIT Family Medicine; ATTEND Family Medicine
PROC: ORIFTOE (2018-12-02 15:38)
CPT/HCPCS: 29515; 70450; 71010; 71045; 72125; 72128; 72131; 73000; 73030; 73610; 73620; 73630; 73718; 73721; 76000; 80048; 80053; 82040; 85025; 85027; 85610; 86850; 86900; 86901; 90774; 90775; 90784; 93005; 96374; 96375; 97110; 97116; 97161; 99285; C8952; J0690; J1170; J1580; J2060; J2250; J2270; J2405; J2704; J3010; J7040; J7120